=== PATIENT | female | born 2000 | race Hispanic/Latino ===

== ENCOUNTER 2023-10-05 15:53 | Emergency (ER) | payer OTHER ==
[2023-10-05 17:41] LABS: Bilirubin Neg (Negative); Blood, Urine Negative (Negative); Clarity Slightly Cloudy (Clear); Glucose, Urine (Dipstick) Normal (Negative); Ketone, Urine Negative (Negative); Leukocyte 25 (Negative); Nitrite Negative (Negative); Protein, Urine (Dipstick) Negative (Neg-Trace); Specific Gravity, Urine 1.015 (1.005-1.030); Urobilinogen Normal mg/dL (Less than 2)
[2023-10-05 18:00] LABS: #Basophils 0.04 10x3/uL (0.0-0.2); #Eosinphils 0.08 10x3/uL (0.0-0.5); #Monocytes 0.48 10x3/uL (0.0-1.1); #Neutrophils 5.12 10x3/uL (1.5-8.4); %Basophils 0.5 % (0.0-2.0); %Lymphocytes 27.8 % (18.0-47.0); %Neutrophils 64.4 % (40.0-75.0); Hematocrit 31.5 % (34.9-44.5); Hemoglobin 10.9 g/dL (12.0-15.5); Mean Corpuscular HGB CONC 34.6 g/dL (32.0-36.0); Mean Corpuscular Hemoglobin 30.9 pg (27.0-33.0); Mean Corpuscular Volume 89.2 fL (81.6-98.3); Mean Platelet Volume 9.3 fL (7.4-10.4); Platelet Count 355 10x3/uL (150-450); RBC Distribution Width 13.5 % (11.5-14.5); Red Blood Cell (RBC) Count 3.53 10x6/uL (3.90-5.03)
[2023-10-05 18:15] LABS: CAUTI Indications for Culture Pregnancy; RBC/HPF 0-3 HPF (0-3)
[2023-10-05 18:16] LABS: Bacteria/HPF 2+ HPF (None Seen); Mucous/LPF 2+ LPF (<2+)
[2023-10-05 18:19] LABS: Urine Culture Reflex Yes Yes
[2023-10-05 18:25] LABS: ALT (SGPT) 7 U/L (8-55); AST (SGOT) 11 U/L (5-34); Alkaline Phosphatase 70 U/L (40-110); Anion Gap 9 mmol/L (10-20); BUN (Urea Nitrogen) 9 mg/dL (7.0-18.7); Bilirubin, Total 0.3 mg/dL (0.2-1.2); Calc. Creatinine Clearance 0 mL/min (70-130); Calcium 8.4 mg/dL (7.8-10.44); Carbon Dioxide 25 mmol/L (22-29); Chloride 104 mmol/L (98-107); Estimated GFR 129; Globulin 3.4 g/dL (2.4-3.5); Glucose 84 mg/dL (70-105); Lipase 13 U/L (8-78); Potassium 3.7 mmol/L (3.5-5.1); Protein, Total 6.4 g/dL (6.0-8.3); Sodium 134 mmol/L (136-145)
== END 2023-10-05 18:48 | disposition home or self-care (01) ==
LOC: CSHERS 15:53
DX: O99.891 Other specified diseases and conditions complicating pregnancy (principal); R78.81 Bacteremia; R10.9 Unspecified abdominal pain; Z3A.17 17 weeks gestation of pregnancy
CPT/HCPCS: 36415; 80053; 81001; 83690; 84702; 85025; 87086

== ENCOUNTER 2023-10-18 16:39 | Emergency (ER) | payer OTHER ==
[~2023-10-18 16:39] MED LIST: Iopamidol 370 76% 100 ML VIAL ONE
[2023-10-18 17:45] LABS: Bilirubin Neg (Negative); Blood, Urine Negative (Negative); Clarity Clear (Clear); Glucose, Urine (Dipstick) Normal (Negative); Ketone, Urine Negative (Negative); Leukocyte 25 (Negative); Nitrite Negative (Negative); Protein, Urine (Dipstick) Negative (Neg-Trace); Specific Gravity, Urine 1.005 (1.005-1.030); Urobilinogen Normal mg/dL (Less than 2)
[2023-10-18 17:52] LABS: Bacteria/HPF Rare-Few HPF (None Seen); CAUTI Indications for Culture Pregnancy; RBC/HPF None Seen HPF (0-3); Squamous Epithelial 0-3 HPF (0-3); Urine Culture Reflex Yes Yes; WBC/HPF 0-3 HPF (0-3)
[2023-10-18 17:54] LABS: #Basophils 0.04 10x3/uL (0.0-0.2); #Eosinphils 0.05 10x3/uL (0.0-0.5); #Monocytes 0.43 10x3/uL (0.0-1.1); #Neutrophils 5.23 10x3/uL (1.5-8.4); %Basophils 0.5 % (0.0-2.0); %Eosinophils 0.6 % (0.0-6.0); %Lymphocytes 29.4 % (18.0-47.0); %Monocytes 5.3 % (0.0-10.0); %Neutrophils 63.8 % (40.0-75.0); Hematocrit 33.7 % (34.9-44.5); Hemoglobin 11.6 g/dL (12.0-15.5); Mean Corpuscular HGB CONC 34.4 g/dL (32.0-36.0); Mean Corpuscular Hemoglobin 30.7 pg (27.0-33.0); Mean Corpuscular Volume 89.2 fL (81.6-98.3); Platelet Count 428 10x3/uL (150-450); RBC Distribution Width 13.6 % (11.5-14.5); Red Blood Cell (RBC) Count 3.78 10x6/uL (3.90-5.03); White Blood Cell (WBC) Count 8.2 10x3/uL (3.5-10.5)
[2023-10-18 18:08] LABS: ALT (SGPT) 8 U/L (8-55); AST (SGOT) 15 U/L (5-34); Albumin 3.2 g/dL (3.5-5.0); Alkaline Phosphatase 73 U/L (40-110); Anion Gap 12 mmol/L (10-20); BUN (Urea Nitrogen) 7 mg/dL (7.0-18.7); Bilirubin, Total 0.3 mg/dL (0.2-1.2); Calc. Creatinine Clearance 0 mL/min (70-130); Calcium 9.2 mg/dL (7.8-10.44); Carbon Dioxide 24 mmol/L (22-29); Chloride 105 mmol/L (98-107); Estimated GFR 131; Globulin 3.5 g/dL (2.4-3.5); Glucose 75 mg/dL (70-105); Lipase 12 U/L (8-78); Potassium 3.7 mmol/L (3.5-5.1); Protein, Total 6.7 g/dL (6.0-8.3); Sodium 137 mmol/L (136-145)
[2023-10-18 18:12] LABS: Troponin I Less than 0.010 ng/mL (< 0.028)
== END 2023-10-18 19:07 | disposition home or self-care (01) ==
LOC: CSHERS 16:39
DX: O99.891 Other specified diseases and conditions complicating pregnancy (principal); R00.2 Palpitations; O99.280 Endocrine, nutritional and metabolic diseases complicating pregnancy, unspecified trimester; E86.0 Dehydration; Z3A.00 Weeks of gestation of pregnancy not specified
CPT/HCPCS: 71275; 80053; 81001; 83690; 84484; 85025; 85379; 87086; 93005; 96360; 96361; Q9967

== ENCOUNTER 2023-12-17 13:22 | Day surgery (SDC) | payer OTHER ==
[2023-12-17 14:27] VITALS: BMI 22.2
[2023-12-17] MEDS ORDERED: hydrALAZINE 20 MG/ML VIAL SLOW IVP PRN (15:11)
[2023-12-17] MEDS ORDERED: Ferrous Sulfate 325 MG TAB PO SCH (15:15)
[2023-12-17] MEDS ORDERED: Lactated Ringer's 1,000 ML IV SCH (15:15)
[2023-12-17] MEDS ORDERED: Acetaminophen 500 MG TAB PO SCH (15:15)
== END 2023-12-17 16:40 | disposition home or self-care (01) ==
LOC: CSHLD/OP 13:22
PROVIDERS: ATTEND Advanced Practice Midwife
DX: O99.891 Other specified diseases and conditions complicating pregnancy (principal); R42 Dizziness and giddiness; R10.2 Pelvic and perineal pain; Z79.899 Other long term (current) drug therapy; Z90.49 Acquired absence of other specified parts of digestive tract; Z3A.26 26 weeks gestation of pregnancy; Z98.890 Other specified postprocedural states
CPT/HCPCS: 76815; 96360; 99282

== ENCOUNTER 2024-02-13 09:48 | Day surgery (SDC) | payer MEDICAID, OTHER, SELFPAY ==
[2024-02-13 10:21] VITALS: BMI 23.0
[2024-02-13 11:19] LABS: #Basophils 0.03 10x3/uL (0.0-0.2); #Eosinophils 0.05 10x3/uL (0.0-0.5); #Monocytes 0.68 10x3/uL (0.0-1.1); #Neutrophils 6.12 10x3/uL (1.5-8.4); %Basophils 0.3 % (0.0-2.0); %Eosinophils 0.6 % (0.0-6.0); %Lymphocytes 21.6 % (18.0-47.0); %Monocytes 7.7 % (0.0-10.0); %Neutrophils 69.3 % (40.0-75.0); Hematocrit 32.9 % (34.9-44.5); Hemoglobin 10.1 g/dL (12.0-15.5); Mean Corpuscular HGB CONC 30.7 g/dL (32.0-36.0); Mean Corpuscular Hemoglobin 26.9 pg (27.0-33.0); Mean Corpuscular Volume 87.5 fL (81.6-98.3); Mean Platelet Volume 9.7 fL (7.4-10.4); Platelet Count 393 10x3/uL (150-450); RBC Distribution Width 16.8 % (11.5-14.5); Red Blood Cell (RBC) Count 3.76 10x6/uL (3.90-5.03); White Blood Cell (WBC) Count 8.8 10x3/uL (3.5-10.5)
[2024-02-13 11:42] LABS: Bilirubin Neg (Negative); Blood, Urine Negative (Negative); Clarity Clear (Clear); Glucose, Urine (Dipstick) Normal (Negative); Ketone, Urine Negative (Negative); Leukocyte 25 (Negative); Nitrite Negative (Negative); Protein, Urine (Dipstick) Negative (Neg-Trace); Specific Gravity, Urine 1.005 (1.005-1.030); Urobilinogen Normal mg/dL (Less than 2)
[2024-02-13 12:06] LABS: Bacteria/HPF None Seen HPF (None Seen); CAUTI Indications for Culture Pregnancy; RBC/HPF 0-3 HPF (0-3); Squamous Epithelial 21-50 HPF (0-3); WBC/HPF 0-3 HPF (0-3)
[2024-02-13 12:07] LABS: Urine Culture Reflex No No; Urine Culture Reflex Yes Yes
== END 2024-02-13 13:05 | disposition home or self-care (01) ==
LOC: CSHLD/OP 09:48
PROVIDERS: ATTEND Advanced Practice Midwife
DX: O99.891 Other specified diseases and conditions complicating pregnancy (principal); R10.30 Lower abdominal pain, unspecified; R35.0 Frequency of micturition; R00.0 Tachycardia, unspecified; N89.8 Other specified noninflammatory disorders of vagina; O99.013 Anemia complicating pregnancy, third trimester; Z90.49 Acquired absence of other specified parts of digestive tract; Z3A.35 35 weeks gestation of pregnancy; Z79.899 Other long term (current) drug therapy
CPT/HCPCS: 81001; 85025; 87086; 87480; 87510; 87660; 99283

== ENCOUNTER 2024-02-25 11:32 | Day surgery (SDC) | payer OTHER ==
[2024-02-25 12:16] LABS: #Basophils 0.03 10x3/uL (0.0-0.2); #Eosinophils 0.04 10x3/uL (0.0-0.5); #Monocytes 0.42 10x3/uL (0.0-1.1); %Basophils 0.4 % (0.0-2.0); %Eosinophils 0.5 % (0.0-6.0); %Lymphocytes 24.5 % (18.0-47.0); %Monocytes 5.5 % (0.0-10.0); %Neutrophils 68.6 % (40.0-75.0); Hematocrit 31.1 % (34.9-44.5); Hemoglobin 9.8 g/dL (12.0-15.5); Mean Corpuscular HGB CONC 31.5 g/dL (32.0-36.0); Mean Corpuscular Hemoglobin 26.8 pg (27.0-33.0); Mean Corpuscular Volume 85.2 fL (81.6-98.3); Mean Platelet Volume 10.2 fL (7.4-10.4); Platelet Count 285 10x3/uL (150-450); RBC Distribution Width 16.9 % (11.5-14.5); Red Blood Cell (RBC) Count 3.65 10x6/uL (3.90-5.03); White Blood Cell (WBC) Count 7.6 10x3/uL (3.5-10.5)
[2024-02-25 12:19] LABS: D-Dimer Test 3.02 mcg/mL (0.19-0.50); INR-International Normal Ratio 0.9; PTT 27.2 sec (22.0-33.0); Prothrombin Time 10.2 sec (9.5-12.1)
[2024-02-25 12:22] LABS: ALT (SGPT) 12 U/L (8-55); AST (SGOT) 14 U/L (5-34); Albumin 2.6 g/dL (3.5-5.0); Alkaline Phosphatase 237 U/L (40-110); Anion Gap 14 mmol/L (10-20); BUN (Urea Nitrogen) 8 mg/dL (7.0-18.7); Bilirubin, Total 0.3 mg/dL (0.2-1.2); Calc. Creatinine Clearance 0 mL/min (70-130); Calcium 8.9 mg/dL (7.8-10.44); Carbon Dioxide 21 mmol/L (22-29); Chloride 107 mmol/L (98-107); Estimated GFR 128; Globulin 3.3 g/dL (2.4-3.5); Glucose 93 mg/dL (70-105); Potassium 3.9 mmol/L (3.5-5.1); Protein, Total 5.9 g/dL (6.0-8.3); Sodium 138 mmol/L (136-145)
[2024-02-25 12:27] LABS: Troponin I Less than 0.010 ng/mL (< 0.028)
[2024-02-25 13:36] VITALS: BMI 23.8
[2024-02-25] MEDS ORDERED: hydrALAZINE 20 MG/ML VIAL SLOW IVP PRN (13:45)
[2024-02-25] MEDS: Calcium Carbonate 500 MG ChewTAB PO SCH (14:16)
== END 2024-02-25 15:24 | disposition home or self-care (01) ==
LOC: CSHERS 11:32 → CSHLD/OP 13:06
PROVIDERS: ATTEND Obstetrics & Gynecology
DX: O99.891 Other specified diseases and conditions complicating pregnancy (principal); R10.12 Left upper quadrant pain; R07.9 Chest pain, unspecified; R06.02 Shortness of breath; O99.013 Anemia complicating pregnancy, third trimester; E61.1 Iron deficiency; O36.8130 Decreased fetal movements, third trimester, not applicable or unspecified; Z90.49 Acquired absence of other specified parts of digestive tract; Z3A.36 36 weeks gestation of pregnancy; Z79.899 Other long term (current) drug therapy
CPT/HCPCS: 36415; 59025; 71045; 80053; 84443; 84484; 85025; 85379; 85610; 85730; 86900; 86901; 93005; 99282

== ENCOUNTER 2024-03-04 15:37 | Day surgery (SDC) | payer OTHER ==
[2024-03-04 16:12] VITALS: BMI 24.6
[2024-03-04] MEDS ORDERED: hydrALAZINE 20 MG/ML VIAL SLOW IVP PRN (16:56)
[2024-03-04 17:16] LABS: Fetal Membranes Rupture No Membranes Rupture (No Rupture)
== END 2024-03-04 19:24 | disposition home or self-care (01) ==
LOC: CSHLD/OP 15:37
PROVIDERS: ATTEND Obstetrics & Gynecology
DX: Z03.71 Encounter for suspected problem with amniotic cavity and membrane ruled out (principal); O47.1 False labor at or after 37 completed weeks of gestation; O99.013 Anemia complicating pregnancy, third trimester; D50.9 Iron deficiency anemia, unspecified; Z90.49 Acquired absence of other specified parts of digestive tract; Z98.890 Other specified postprocedural states; Z79.899 Other long term (current) drug therapy; Z3A.38 38 weeks gestation of pregnancy
CPT/HCPCS: 84112; 87480; 87510; 87660

== ENCOUNTER 2024-03-07 11:41 | Day surgery (SDC) | payer OTHER ==
[2024-03-07 12:23] VITALS: BMI 25.2
[2024-03-07 12:51] LABS: Fetal Membranes Rupture No Membranes Rupture (No Rupture)
[2024-03-07] MEDS ORDERED: hydrALAZINE 20 MG/ML VIAL SLOW IVP PRN (12:55)
== END 2024-03-07 13:23 | disposition home or self-care (01) ==
LOC: CSHLD/OP 11:41
PROVIDERS: ATTEND Obstetrics & Gynecology
DX: O23.593 Infection of other part of genital tract in pregnancy, third trimester (principal); N89.8 Other specified noninflammatory disorders of vagina; Z03.71 Encounter for suspected problem with amniotic cavity and membrane ruled out; O99.013 Anemia complicating pregnancy, third trimester; D50.9 Iron deficiency anemia, unspecified; Z3A.38 38 weeks gestation of pregnancy; Z90.49 Acquired absence of other specified parts of digestive tract; Z79.899 Other long term (current) drug therapy
CPT/HCPCS: 84112; 99283

== ENCOUNTER 2024-03-09 14:46 | Day surgery (SDC) | payer OTHER ==
[2024-03-09] MEDS ORDERED: hydrALAZINE 20 MG/ML VIAL SLOW IVP PRN (16:18)
== END 2024-03-09 17:38 | disposition home or self-care (01) ==
LOC: CSHLD/OP 14:46
PROVIDERS: ATTEND Advanced Practice Midwife
DX: O47.1 False labor at or after 37 completed weeks of gestation (principal); Z3A.38 38 weeks gestation of pregnancy; Z79.899 Other long term (current) drug therapy; Z90.49 Acquired absence of other specified parts of digestive tract
CPT/HCPCS: 76819; 99283

== ENCOUNTER 2024-03-11 06:00 | Inpatient (IN) | payer OTHER ==
[2024-03-11] MEDS ORDERED: ePHEDrine Sulfate 50 MG/10 ML VIAL ONE (14:00)
[2024-03-11] MEDS ORDERED: Bupivacaine/Epinephrine 0.25% 30 ML VIAL ONE (14:00)
[2024-03-11 23:00] VITALS: BMI 25.2
[2024-03-11] MEDS ORDERED: Carboprost 250 MCG/ML AMP IM PRN (23:27)
[2024-03-11] MEDS ORDERED: Promethazine HCl 25 MG/ML VIAL IM PRN (23:27)
[2024-03-11] MEDS ORDERED: Ondansetron PF 4 MG/2 ML Vial IVP PRN (23:27)
[2024-03-11] MEDS ORDERED: Misoprostol 200 MCG TAB PR PRN (23:27)
[2024-03-11] MEDS ORDERED: Lidocaine 1% (PF) 30 ML VIAL SC PRN (23:27)
[2024-03-11] MEDS ORDERED: Tranexamic Acid 1,000 MG/10 ML VIAL IVP PRN (23:27)
[2024-03-11] MEDS ORDERED: hydrALAZINE 20 MG/ML VIAL SLOW IVP PRN (23:27)
[2024-03-11] MEDS ORDERED: Methylergonovine 0.2 MG/ML VIAL IM PRN (23:27)
[2024-03-11] MEDS ORDERED: Diphenoxylate HCl/Atropine Tablet PO PRN (23:27)
[2024-03-12 00:10] LABS: Hematocrit 32.8 % (34.9-44.5); Hemoglobin 10.4 g/dL (12.0-15.5); Mean Corpuscular HGB CONC 31.7 g/dL (32.0-36.0); Mean Corpuscular Hemoglobin 26.4 pg (27.0-33.0); Mean Corpuscular Volume 83.2 fL (81.6-98.3); Mean Platelet Volume 10.6 fL (7.4-10.4); Platelet Count 331 10x3/uL (150-450); RBC Distribution Width 17.1 % (11.5-14.5); Red Blood Cell (RBC) Count 3.94 10x6/uL (3.90-5.03); White Blood Cell (WBC) Count 10.8 10x3/uL (3.5-10.5)
[2024-03-12 00:24] LABS: Syphilis Antibody Nonreactive (Nonreactive); Syphilis Antibody Index 0.06 S/CO (<1.00 Non-Reactive)
[2024-03-12] MEDS: fentaNYL/Ropivacaine Epidural 100 ML ONE (00:24)
[2024-03-12 00:27] LABS: HBsAg Index 0.18 S/CO (0-0.99); HIV (1/2) Antibody/Antigen Non-Reactive (NonReactive); Hep B Surf Ag - L&D Non-Reactive S/CO (NonReactive)
[2024-03-12] MEDS ORDERED: Promethazine HCl 25 MG/ML VIAL IM PRN (00:58)
[2024-03-12] MEDS ORDERED: diphenhydrAMINE 50 MG/ML VIAL IVP PRN (00:58)
[2024-03-12] MEDS ORDERED: ePHEDrine Sulfate 50 MG/10 ML VIAL SLOW IVP PRN (00:58)
[2024-03-12] MEDS ORDERED: Lactated Ringer's 500 ML IV PRN (00:58)
[2024-03-12] MEDS ORDERED: Moisturizing Cream (Eucerin) 113 GM JAR TOP PRN (00:58)
[2024-03-12] MEDS ORDERED: Ondansetron PF 4 MG/2 ML Vial IVP PRN (00:58)
[2024-03-12] MEDS ORDERED: Naloxone HCl 0.4 mg/ml Vial IVP PRN ×2 (00:58)
[2024-03-12] MEDS ORDERED: Acetaminophen 325 MG TAB PO PRN (00:58)
[2024-03-12] MEDS ORDERED: fentaNYL 2 mcg/Ropivacaine 0.2% Epidural 100 ML CADD EPIDURAL SCH (01:00)
[2024-03-12] MEDS ORDERED: Communication Order-Pharmacy FS SCH (01:00)
[2024-03-12] MEDS: Oxytocin 30 units/NS 500 ML 500 ML IV SCH (02:55)
[2024-03-12] MEDS ORDERED: Milk Of Magnesia 30 ML UDCUP PO PRN (05:10)
[2024-03-12] MEDS ORDERED: Lanolin Ointment 7 GM TUBE TOP PRN (05:10)
[2024-03-12] MEDS ORDERED: Bisacodyl 10 MG SUPP PR PRN (05:10)
[2024-03-12] MEDS ORDERED: Preparation H Ointment 28 GM TUBE PR PRN (05:10)
[2024-03-12] MEDS: Lactated Ringer's 500 ML IV SCH (05:42)
[2024-03-12] MEDS: Oxytocin 30 units/NS 500 ML 500 ML ONE (05:45)
[2024-03-12] MEDS ORDERED: Ibuprofen 800 MG TAB PO SCH (06:00)
[2024-03-12] MEDS: Ibuprofen 100 MG/5 ML UDCUP PO SCH (06:11)
[2024-03-12] MEDS: Prenatal Vitamin 1 TAB PO SCH (08:14)
[2024-03-12] MEDS: Docusate 100 MG CAP PO SCH (08:14)
[2024-03-12] MEDS: Ferrous Sulfate 325 MG TAB PO SCH (08:14)
[2024-03-13 07:59] VITALS: BP 90/55; TEMP 98.2
== END 2024-03-13 15:45 | disposition home or self-care (01) | DRG 807 ==
LOC: CSHLD 22:43 → CSHPED 03-12 05:08
PROVIDERS: ADMIT Obstetrics & Gynecology; ATTEND Obstetrics & Gynecology
PROC: 10E0XZZ Delivery of Products of Conception, External Approach (ICD-10-PCS; principal; 2024-03-12)
DX: O99.02 Anemia complicating childbirth (principal); Z37.0 Single live birth; Z3A.39 39 weeks gestation of pregnancy; D64.9 Anemia, unspecified
CPT/HCPCS: 51702; 85027; 86780; 86850; 86900; 86901; 87340; 87389; 99285; J2590

== ENCOUNTER 2024-03-13 19:11 | Emergency (ER) | payer OTHER ==
[2024-03-13 20:42] LABS: #Basophils 0.06 10x3/uL (0.0-0.2); #Eosinophils 0.06 10x3/uL (0.0-0.5); #Monocytes 0.51 10x3/uL (0.0-1.1); #Neutrophils 6.38 10x3/uL (1.5-8.4); %Basophils 0.6 % (0.0-2.0); %Eosinophils 0.6 % (0.0-6.0); %Lymphocytes 28.8 % (18.0-47.0); %Monocytes 5.1 % (0.0-10.0); %Neutrophils 64.4 % (40.0-75.0); Hematocrit 34.5 % (34.9-44.5); Mean Corpuscular HGB CONC 31.9 g/dL (32.0-36.0); Mean Corpuscular Hemoglobin 27.3 pg (27.0-33.0); Mean Corpuscular Volume 85.6 fL (81.6-98.3); Mean Platelet Volume 10.1 fL (7.4-10.4); Platelet Count 409 10x3/uL (150-450); RBC Distribution Width 17.6 % (11.5-14.5); Red Blood Cell (RBC) Count 4.03 10x6/uL (3.90-5.03); White Blood Cell (WBC) Count 9.9 10x3/uL (3.5-10.5)
[2024-03-13 21:10] LABS: Anion Gap 14 mmol/L (10-20); BUN (Urea Nitrogen) 10 mg/dL (7.0-18.7); Calc. Creatinine Clearance 0 mL/min (70-130); Carbon Dioxide 23 mmol/L (22-29); Chloride 107 mmol/L (98-107); Estimated GFR 127; Glucose 95 mg/dL (70-105); Potassium 4.3 mmol/L (3.5-5.1); Sodium 140 mmol/L (136-145)
== END 2024-03-13 21:54 | disposition home or self-care (01) ==
LOC: CSHERS 19:11
DX: R06.02 Shortness of breath (principal)
CPT/HCPCS: 36415; 71045; 80048; 85025; 93005

== ENCOUNTER 2024-11-04 13:48 | Outpatient (CLI) | payer MEDICAID, OTHER | END 2024-11-04 13:49 | disposition home or self-care (01) | LOC: CSHULT 13:48 | PROVIDERS: ATTEND Family Medicine | DX: R06.02 Shortness of breath (principal) | CPT/HCPCS: 93306 ==

== ENCOUNTER 2024-12-02 14:04 | Outpatient (CLI) | payer OTHER | END 2024-12-02 14:05 | disposition home or self-care (01) | LOC: CSHCP 14:04 | PROVIDERS: ATTEND Internal Medicine | DX: J45.909 Unspecified asthma, uncomplicated (principal) | CPT/HCPCS: 94010; 94726; 94729; 94760 ==